=== PATIENT | male | born 1975 | race African-American/Black ===

== ENCOUNTER 2018-04-12 09:03 | Emergency (ER) | payer MEDICAID, OTHER ==
--- OUTSIDE RECORDS SUMMARY | 2018-04-12 09:07 | XMS REPORT ---
:1975 External Reference #:[id number] Author Organization [facility] Address [address] [place] [address] [place] [address] Phone [phone] Care Team Providers Name Role Phone Crispin Siddiqi MD Primary Care Physician Unavailable Payers Type Date Identification Numbers Payment Provider Subscriber Commercial Policy Number: [id number] Manfredanne Casillas PayID: [id number] [address] [place] [address] Medigap Part B Expires: 2017 Policy Number: [id number] Medicaid Aj Casillas Group Name: 1 1 [address] PayID: [id number] [place] [address] Workers Compensation Effective: Policy Number: Cresencio Casillas 2014 [id number] PayID: [id number] [address] [place] [address] Workers Compensation Onset: 2015 Policy Number: Lynette Casillas [id number] PayID: [id number] [address] [place] [address] Problems Date Description Provider Status Onset: 10/04/2011 Asthma without status asthmaticus Crispin Siddiqi M.D. Active Onset: 02/06/2013 Kyphoscoliosis and scoliosis Crispin Siddiqi M.D. Active Onset: 06/11/2014 Cervical disc disorder Crispin Siddiqi M.D. Active Onset: 06/19/2014 Neck pain Crispin Siddiqi M.D. Active Onset: 06/19/2014 C/O - a back symptom Crispin Siddiqi M.D. Active Onset: 10/01/2015 Pain in thoracic spine Crispin Siddiqi M.D. Active Onset: 07/19/2011 Cellulitis and abscess of face Crispin Siddiqi M.D. Inactive Inactive: 04/03/2015 Onset: 10/04/2011 Acute gingivitis Crispin Siddiqi M.D. Inactive Inactive: 04/03/2015 Onset: 06/11/2014 Chest pain Crispin Siddiqi M.D. Inactive Inactive: 04/03/2015 Family History Date Family Member(s) Problem(s) Comments Mother Alcoholism Mother Social History Type Date Description Comments Lives With Children 3, plus brothers and dog ETOH Use Consumes liquor once daily "a small bottle of Zora" - would be 375 ml Recreational Drug Use Marijuana Smoking Patient has never smoked Allergies, Adverse Reactions, Alerts Date Description Reaction Status Severity Comments 04/01/2010 Slo-bid vomiting and hives active Medications Medication Date Status Form Strength Qnty SIG Indications Ordering Provider Sofia Leos 04/10/ Active Capsules 100mg 30cap 1-2 by J20.9 Too EJr 2018 s mouth Pat, three M.D. times a day as needed Ventolin HFA 04/10/ Active Aerosol 108(90Base 8gm 2 puffs J45.909 Too EJr 2018 ) mcg/Act by mouth Pat, four M.D. times a day as needed Prednisone 04/10/ Active Tablets 20mg 10tab 1 by J45.909 Too EJr 2018 s mouth Pat, every day M.DJr Symbicort 05/02/ Active Aerosol 160-4.5mcg 30.6g 2 puff J45.909 [place] 2016 /Act m twice a Devang, day MJrDJr Montelukast 05/02/ Active Tablets 10mg 30tab once J45.909 [place] Sodium 2016 s daily Pachika, M.D. Ventolin HFA 05/02/ Active Aerosol 108(90Base 16gm 2 puffs J45.909 Zsofia 2015 ) mcg/Act by mouth Casa, four [employer]TAIN times a day as needed Cyclobenzaprine 04/03/ Active Tablets 10mg 30tab take 1 [place] HCL 2014 s tablet Pachikara, three M.D. times a day as needed (mva-rela poppy back pain) Ibuprofen 06/11/ Active Tablets 600mg 90tab three M50.10 Zoltan 2013 s times a D. Barnard, day as M.D.,[facility] needed Ventolin HFA 10/01/ Hx Aerosol 108(90Base 18gm 2 puffs Zoltan 2015 - ) mcg/Act by mouth Ramirez Her, 05/02/ four M.D.,FACP 2016 times a day as needed Diazepam 06/19/ Hx Tablets 5mg 2tabs 1-2 tab 1 722.91 [place] 2013 - hour Pachikara, 04/03/ before M.D. 2014 MRI no driving after taking diazepam Oxycodone-Acetami 06/11/ Hx Tablets 5-325mg 30tab 1 tab 722.91 Crispinjessica price 2014 - s every 12h Pachikara, 04/03/ as needed M.D. 2014 Ventolin HFA 02/07/ Hx Aerosol 108(90Base 1unit 2 puffs 4 493.90 Zulay 2013 - ) mcg/Act s times a Javy, 02/07/ day as M.D. 2013 needed Flovent HFA 02/07/ Hx Aerosol 110mcg/Act 1unit 2 puffs J45.909 Crispin 2014 - s twice Pachikara, 05/02/ daily M.D. 2016 Proair HFA 02/07/ Hx Aerosol 108(90Base 1unit 2 puffs 4 [place] 2013 - ) mcg/Act s times Pachikara, 05/02/ daily as M.D. 2016 needed Proair HFA 02/06/ Hx Aerosol 108(90Base 1unit 2 puffs 493.90 Crispin 2012 - ) mcg/Act s ih q6h Pachikara, 02/07/ prn M.D. 2014 Flovent HFA 02/06/ Hx Aerosol 110mcg/Act 1unit 2 puffs 493.90 Crispin 2013 - s twice Pachikara, 02/07/ daily M.D. 2014 Proair HFA 10/03/ Hx Aerosol 108(90Base 1unit 2 puffs 493.90 [place] 2011 - ) mcg/ac s ih q6h Pachikara, 02/06/ prn M.D. 2013 Amoxicillin/Potas 07/19/ Hx Tablets 875-125mg 20tab 1 po bid 682.0 [place] sium Clavulanate 2011 - s Pachikara, 10/03/ M.D. 2012 Lortab 5 04/01/ Hx Tablets 5-500mg 60tab 1tab 6h 724.1 Crispin 2009 - s prn Pachika, 10/03/ M.DJr 2011 Advair Diskus 04/01/ Hx Aerosol 250-50mcg/ 1unit 1 puff po 493.90 Crispin 2010 - Dose s bid Pachikara, 02/06/ M.DJr 2012 Albuterol Inhaler / Hx 1unit 2 puffs Crispin - s po qid Devang, 10/03/ prn M.DJr 2011 Allergy Relief / Hx Tablets 25mg daily Unknown - 2013 Ibuprofen / Hx Capsules 600mg prn Unknown - 2013 Immunizations CPT Code Status Date Vaccine Lot # [id number] Given 10/01/2015 Pneumonia Vaccine [id number] Given 07/20/2011 Tdap - Tetanus/Diptheria/Acellular Pertussis [id number] Vital Signs Date Vital Result Comment 04/10/2018 Height 66.25 inches 5'6.25" Weight 134.00 lb Heart Rate 93 /min BP Systolic Sitting 110 mmHg BP Diastolic Sitting 70 mmHg O2 % BldC Oximetry 96 % BMI (Body Mass Index) 21.5 kg/m2 05/02/2016 Weight 157.12 lb Heart Rate 78 /min BP Systolic Sitting 138 mmHg BP Diastolic Sitting 82 mmHg Body Temperature 98.3 F O2 % BldC Oximetry 97 % 10/01/2015 Height 66.25 inches 5'6.25" Weight 153.00 lb Heart Rate 102 /min BP Systolic Sitting 106 mmHg BP Diastolic Sitting 70 mmHg Body Temperature 98.2 F O2 % BldC Oximetry 98 % BMI (Body Mass Index) 24.5 kg/m2 04/03/2015 Height 66.25 inches 5'6.25" Weight 145.38 lb Heart Rate 100 /min BP Systolic Sitting 122 mmHg BP Diastolic Sitting 80 mmHg Body Temperature 97.9 F Pain Level 7 /10 OTC meds taken O2 % BldC Oximetry 99 % BMI (Body Mass Index) 23.3 kg/m2 06/19/2014 Height 66.25 inches 5'6.25" Weight 147.00 lb Heart Rate 113 /min BP Systolic Sitting 135 mmHg BP Diastolic Sitting 94 mmHg Pain Level 5 BMI (Body Mass Index) 23.5 kg/m2 06/11/2014 Height 66.25 inches 5'6.25" Weight 151.50 lb Heart Rate 78 /min BP Systolic Sitting 122 mmHg BP Diastolic Sitting 80 mmHg Pain Level 8 BMI (Body Mass Index) 24.3 kg/m2 03/18/2014 Weight 142.00 lb Heart Rate 80 /min BP Systolic Sitting 124 mmHg BP Diastolic Sitting 74 mmHg 02/07/2014 Weight 142.00 lb Heart Rate 96 /min BP Systolic Sitting 120 mmHg BP Diastolic Sitting 80 mmHg Body Temperature 97.7 F 02/06/2013 Height 66.75 inches 5'6.75" Weight 141.00 lb Heart Rate 80 /min BP Systolic Sitting 130 mmHg BP Diastolic Sitting 100 mmHg BMI (Body Mass Index) 22.2 kg/m2 10/04/2011 Height 66.5 inches 5'6.50" Weight 148.00 lb Heart Rate 68 /min BP Systolic Sitting 122 mmHg BP Diastolic Sitting 72 mmHg BMI (Body Mass Index) 23.5 kg/m2 07/19/2011 Height 66.5 inches 5'6.50" Weight 143.00 lb Heart Rate 78 /min BP Systolic Sitting 142 mmHg L BP Diastolic Sitting 92 mmHg L Body Temperature 98.6 F BMI (Body Mass Index) 22.7 kg/m2 04/01/2010 Height 66.5 inches 5'6.50" Weight 170.00 lb Heart Rate 80 /min BP Systolic Sitting 116 mmHg BP Diastolic Sitting 78 mmHg BMI (Body Mass Index) 27.0 kg/m2 Results Test Date Test Result H/L Range Note CBC Auto Diff 03/19/2015 White Blood Count 3.9 10^3/uL Low 4.8-10.8 Red Blood Count 4.34 10^6/uL 4.0-5.4 Hemoglobin 13.8 g/dL Low 14.0-18.0 Hematocrit 42 % 42-52 Mean Corpuscular Volume 97 fL High 80-94 Mean Corpuscular Hemoglobin 32 pg High 27-31 Mean Corpuscular HGB Conc 33 g/dL 31-36 Red Cell Distribution Width 14 % 10.5-15 Platelet Count 245 10^3/uL 150-450 Mean Platelet Volume 9 um3 7.4-10.4 Abs Neutrophils 1.4 10^3/uL Low 1.5-7.7 Abs Lymphocytes 1.8 10^3/uL 1.0-4.8 Abs Monocytes 0.3 10^3/uL 0-0.8 Abs Eosinophils 0.3 10^3/uL 0-0.6 Abs Basophils 0 10^3/uL 0-0.2 Abs Nucleated RBC 0.01 10^3/uL Granulocyte % 37.0 % Low 38-83 Lymphocyte % 46.1 % 25-47 Monocyte % 8.9 % 1-9 Eosinophil % 7.0 % High 0-6 Basophil % 1.0 % 0-2 Nucleated Red Blood Cells % 0.3 Comp Metabolic Panel 03/19/2015 Sodium 138 mmol/L 133-145 Chloride 106 mmol/L 101-111 Co2 Carbon Dioxide 27 mmol/L 22-32 Glucose 95 mg/dL 70-100 Blood Urea Nitrogen 15 mg/dL 6-24 Creatinine 0.98 mg/dL 0.67-1.17 BUN/Creatinine Ratio 15.3 8-20 Calcium 8.4 mg/dL Low 8.6-10.3 Total Protein 6.8 g/dL 6.4-8.9 Albumin 3.7 g/dL 3.2-5.2 Globulin 3.1 g/dL 2-4 Albumin/Globulin Ratio 1.2 1-3 Total Bilirubin 0.40 mg/dL 0.2-1.0 Alkaline Phosphatase 57 U/L 34-104 Alt 21 U/L 7-52 Egfr Non- 85.6 >60 Egfr 110.1 >60 1 Potassium 3.9 mmol/L 3.5-5.0 Anion Gap 5 mmol/L 2-11 Ast 21 U/L 13-39 Laboratory test finding 03/19/2015 Creatine Kinase(CK) 202 U/L 10-223 Urinalysis Profile 03/19/2015 Urine Color Yellow Urine Appearance Clear Urine Specific [place] 1.018 1.010-1.030 Urine pH 6.0 5-9 Urine Urobilinogen Negative Negative Urine Ketones Negative Negative Urine Protein Negative Negative Urine Leukocytes Negative Negative Urine Blood Negative Negative Urine Nitrite Negative Negative Urine Bilirubin Negative Negative Urine Glucose Negative Negative Drug Abuse 20 Urine 06/17/2014 Urine Amphetamine Negative ng/mL 2 Urine Barbiturates Negative ng/mL 3 Urine Benzodiazepines Negative ng/mL 4 Urine Cocaine Presumptive Posi <SEE NOTE> ng/mL 5 Urine Methadone Negative ng/mL 6 Urine Opiates Negative ng/mL 7 Urine Phencyclidine Negative ng/mL Cutoff: 25 Urine Tetrahydrocannabinol Presumptive Posi <SEE NOTE> ng/mL Cutoff: 20 8 Urine Oxycodone Presumptive Posi <SEE NOTE> ng/mL 9 Urine Amphetamine Negative ng/mL 10 Urine Barbiturates Negative ng/mL 11 Urine Benzodiazepines Negative ng/mL 12 Urine Cocaine Presumptive Posi <SEE NOTE> ng/mL 13 Urine Methadone Negative ng/mL 14 Urine Opiates Negative ng/mL 15 Urine Phencyclidine Negative ng/mL Cutoff: 25 Urine Tetrahydrocannabinol Presumptive Posi <SEE NOTE> ng/mL Cutoff: 20 16 Urine Oxycodone Presumptive Posi <SEE NOTE> ng/mL 17 Urine Cocaine 06/17/2014 Urine Cocaine Negative ng/mL Cutoff: 50 Confirmation Confirm (GC/MS) Ur Benzoylecgonine Confirm 162 ng/mL Cutoff: 50 Urine Cocaine Interpretation Positive. 18 THC Confirmation Urine 06/17/2014 Urine Carboxy THC Confirm >500.0 ng/mL 19 Urine THC Interpretation Positive. 20 Oxycodone,Urine Quantitation 06/17/2014 Oxycodone Negative ng/mL 21 Oxymorphone 510 ng/mL 22 Oxycodone Interpretation Positive. 23 HIV 1/2 AB Evaluation 02/11/2014 HIV 1 2 Antibody Nonreactive Nonreactive 24 Comp Metabolic Panel 02/11/2014 Sodium 139 mmol/L 133-145 Potassium 3.8 mmol/L 3.7-5.6 Chloride 105 mmol/L 101-111 Co2 Carbon Dioxide 29 mmol/L 22-32 Anion Gap 5 mmol/L 2-11 Glucose 73 mg/dL 70-100 Blood Urea Nitrogen 15 mg/dL 6-24 Creatinine 1.10 mg/dL 0.67-1.17 BUN/Creatinine Ratio 13.6 8-20 Calcium 9.3 mg/dL 8.6-10.3 Total Protein 8.3 g/dL 6.4-8.9 Albumin 4.5 g/dL 3.2-5.2 Globulin 3.8 g/dL 2-4 Albumin/Globulin Ratio 1.2 1-3 Total Bilirubin 0.60 mg/dL 0.2-1.0 Alkaline Phosphatase 54 U/L 34-104 Alt 18 U/L 7-52 Ast 18 U/L 13-39 Egfr Non- 75.3 >60 Egfr 96.9 >60 25 Syphilis Screen 02/11/2014 Syphilis IgG Nonreactive Nonreactive 26 RPR TNP Nonreactive RPR Titer TNP Pediatric/Maternal NO Lipid Profile (Trig/Chol/HDL) 02/11/2014 Triglycerides 164 mg/dL 27 Cholesterol 212 mg/dL 28 HDL Cholesterol 85.6 mg/dL 29 LDL Cholesterol 94 mg/dL 30 GC/Chlamydia Amplified Rna 02/07/2014 GC/Chlamydia Rna (SEE NOTE) 31 Ua Routine 02/07/2014 Ua Specific [place] 1.010 Ua PH 5 Ua Color dwain Ua Appera clear Ua WBC neg Ua Protein 30 Ua Glucose neg Ua Ketones trace Ua Bilirubin small Ua Urobilinogen norm Ua Nitrite neg Ua Occult Blood trace 1 Because ethnic data is not always readily available, this report includes an eGFR for both -Americans and non- Americans. The National Kidney Disease Education Program (NKDEP) does not endorse the use of the MDRD equation for patients that are not between the ages of 18 and 70, are , have extremes of body size, muscle mass, or nutritional status, or are non- or non-. According to the National Kidney Foundation, irrespective of diagnosis, the stage of the disease is based on the level of kidney function: Stage Description GFR(mL/min/1.73 m(2)) 1 Kidney damage with normal or decreased GFR 90 2 Kidney damage with mild decrease in GFR 60-89 3 Moderate decrease in GFR 30-59 4 Severe decrease in GFR 15-29 5 Kidney failure <15 (or dialysis) 2 REFERENCE VALUE Cutoff: 500 3 REFERENCE VALUE Cutoff: 200 4 REFERENCE VALUE Cutoff: 200 5 Presumptive Positive Drug confirmation to follow. Presumptive Positive means that the screening method is positive, but the test needs to be run by a confirmatory method before being finalized. REFERENCE VALUE Cutoff: 150 6 REFERENCE VALUE Cutoff: 150 7 REFERENCE VALUE Cutoff: 300 8 Presumptive Positive Drug confirmation to follow. Presumptive Positive means that the screening method is positive, but the test needs to be run by a confirmatory method before being finalized. ADDITIONAL INFORMATION This report is intended for use in clinical monitoring or management of patients. It is not intended for use in employment-related testing. 9 Presumptive Positive Drug confirmation to follow. Presumptive Positive means that the screening method is positive, but the test needs to be run by a confirmatory method before being finalized. REFERENCE VALUE Cutoff: 100 ADDITIONAL INFORMATION This report is intended for use in clinical monitoring or management of patients. It is not intended for use in employment-related testing. Test Performed by: [facility] - [address] [address] Reading Coach: Carl Jenkins M.D. 10 REFERENCE VALUE Cutoff: 500 11 REFERENCE VALUE Cutoff: 200 12 REFERENCE VALUE Cutoff: 200 13 Presumptive Positive Drug confirmation to follow. Presumptive Positive means that the screening method is positive, but the test needs to be run by a confirmatory method before being finalized. REFERENCE VALUE Cutoff: 150 14 REFERENCE VALUE Cutoff: 150 15 REFERENCE VALUE Cutoff: 300 16 Presumptive Positive Drug confirmation to follow. Presumptive Positive means that the screening method is positive, but the test needs to be run by a confirmatory method before being finalized. ADDITIONAL INFORMATION This report is intended for use in clinical monitoring or management of patients. It is not intended for use in employment-related testing. 17 Presumptive Positive Drug confirmation to follow. Presumptive Positive means that the screening method is positive, but the test needs to be run by a confirmatory method before being finalized. REFERENCE VALUE Cutoff: 100 ADDITIONAL INFORMATION This report is intended for use in clinical monitoring or management of patients. It is not intended for use in employment-related testing. Test Performed by: [facility] [place] [address] Reading Coach: Carl Jenkins M.D. 18 ADDITIONAL INFORMATION This report is intended for use in clinical monitoring and management of patients. It is not intended for use in employment-related testing. Test Performed by: [place] [address] Reading Coach: Carl Jenkins M.D. 19 REFERENCE VALUE Cutoff: 3.0 20 ADDITIONAL INFORMATION This report is intended for use in clinical monitoring and management of patients. It is not intended for use in employment-related testing. Test Performed by: [place] [address] Reading Coach: Carl Jenkins M.D. 21 REFERENCE VALUE Cutoff: 100 22 REFERENCE VALUE Cutoff: 100 23 ADDITIONAL INFORMATION This report is intended for use in clinical monitoring and management of patients. It is not intended for use in employment-related testing. Test Performed by: [place] [address] [place] [address] Reading Coach: Carl Jenkins M.D. 24 It is recognized that currently available assays for the detection of antibodies to HIV-1 and/or HIV-2 may not detect all infected individuals. HIV antibodies may be undetectable in some stages of the infection and in some clinical conditions. The performance of this assay has not been established for populations of infants or children. Assayed by Chemiluminescence Microparticle Immunoassay on the Siemens Advia Centaur CP. Values obtained with different methods or kits cannot be used interchangeably.The diagnostic specificity of the ADVIA Centaur 1/O/2 Enhanced assay in the low risk population was 99.90% (6052/6058) with a 95% confidence interval of 99.78 to 99.96%. 25 Because ethnic data is not always readily available, this report includes an eGFR for both -Americans and non- Americans. The National Kidney Disease Education Program (NKDEP) does not endorse the use of the MDRD equation for patients that are not between the ages of 18 and 70, are , have extremes of body size, muscle mass, or nutritional status, or are non- or non-. According to the National Kidney Foundation, irrespective of diagnosis, the stage of the disease is based on the level of kidney function: Stage Description GFR(mL/min/1.73 m(2)) 1 Kidney damage with normal or decreased GFR 90 2 Kidney damage with mild decrease in GFR 60-89 3 Moderate decrease in GFR 30-59 4 Severe decrease in GFR 15-29 5 Kidney failure <15 (or dialysis) 26 Warning: A positive result is not useful for establishing a diagnosis of syphilis. In most situations, such a result may reflect a prior treated infection; a negative result can exclude a diagnosis of syphilis except for incubating or early primary disease. 27 Desirable <150 Borderline high 150-199 High 200-499 Very High >500 28 Desirable <200 Borderline high 200-239 High >239 29 Low <40 Desirable: 40-60 High: >60 30 Desirable <100 Near Optimal 100-129 Borderline high 130-159 High 160-189 Very High >189 31 RUN DATE: 02/11/14 [facility] LAB LIVE PAGE 1 RUN TIME: [address] [place] [address] Specimen Inquiry Name: AJ CASILLAS Sri : [address]: Zulay Palafox MD Acct: [id number] Unit: [id number] AGE: 38 Location: [facility] Re02/07/14 SEX: M Status: REG REF SPEC: [id number] JUSTICE: 02/07/[address]: Zulay Palafox MD REQ: [id number] RECD: 02/07/14 STATUS: COMP _ SOURCE: URINE SPDESC: ORDERED: AELX/Reena RNA QUERIES: Medent Number [id number] Procedure Result Verified Site Chlamydia Trachomatis RNA Final 02/11/14- 1517 ML NEGATIVE for Chlamydia trachomatis rRNA GC (N. gonorrhoeae) RNA Final 02/11/14- 1507 ML NEGATIVE for Neisseria gonorrhoeae rRNA A negative result does not preclude the presence of a C. trachomatis or N. gonorrhoeae infection because results are dependent on adequate specimen collection, absence of inhibitors, and sufficient rRNA to be detected. Test results may be affected by improper specimen collection, improper storage, technical error, or specimen mixup. Limitations of the Procedure: The Aptima Combo 2 Assay is not intended for the evaluation of suspected sexual abuse or for other medico-legal indications. For those patients for whom a false positive result may have adverse psychosocial impact, the [facility] recommends retesting by a method using an alternate technology. Therapeutic failure or success cannot be determined with the Aptima Combo 2 Assay since nucleic acid may persist following appropriate antimicrobial therapy. Results from the Aptima Combo 2 Assay should be interpreted in conjunction with other laboratory and clinical data available to the clinican. CONTINUED ON NEXT PAGE * ML=Testing performed at Main Lab DEPARTMENT OF PATHOLOGY, [facility] [place] [address] Aman Akins M.D. Director [facility] # [id number] RUN DATE: 02/11/14 [facility] LAB LIVE PAGE 2 RUN TIME: 857 [facility] [place], [place] [address] Specimen Inquiry Patient: VINNYAJ Sri [id number] (Continued) Specimen: [id number] Collected: 02/07/14 Received: 02/07/14 (Continued) Procedure Result Verified Site GC (N. gonorrhoeae) RNA Final (continued) 02/11/14- 0648 Performance characteristics for detecting C. trachomatis and N. gonorrhoeae are derived from high prevalence populations. Positive results in low prevalence populations should be interpreted carefully with the understanding that the likelihood of a false positive may be higher than a true positive. END OF REPORT * ML=Testing performed at Main Lab DEPARTMENT OF PATHOLOGY, [address] [place] [address] Aman Akins M.D. Director [facility] # [id number] Procedures Date CPT Code Description Status 10/10/2017 91895 Repair Immediate Wound < 2.6CM Completed Face/Ear/Eyelid/Nose/Lip/Muc Mem 10/10/2017 76997 Excise Benign Lesion 1.1-2CM Completed Face/Ear/Eyelid/Nose/Lip/Mucous Memb 07/22/2010 44424 FX Metatarsal Care Completed Encounters Type Date Location Provider CPT E/M Dx Office Visit 10/25/2017 [facility] [place] [address] Z48.02 4:30p Office Visit 09/28/2017 [facility] [place] [address] L72.0 11:10a Office Visit 05/02/2016 [facility] Internal Medicine Crispin Siddiqi [address] M54.6 1:00p - Maxine Merrill M.D. M41.85 J45.909 Z13.1 Z13.220 Office Visit 10/01/2015 1:00p [facility] Internal Crispin Siddiqi M.D. 93540 M54.6 Medicine - [place] J45.909 Z23 Office Visit 04/03/2015 1:00p [facility] Internal Medicine Zoltan Her, [address] T14.8 - Tbdustin Merrill M.D.,FACP R42 Office Visit 06/19/2014 11:00a [facility] Internal Crispin Siddiqi 61110 722.91 Victorino Keenan M.D. 724.8 Office Visit 06/11/2014 1:00p [facility] Internal Crispin Siddiqi 11888 722.91 Victorino Keenan M.D. 786.59 723.1 Office Visit 03/18/2014 4:00p [facility] Internal Medicine Too Stewart [address] 782.0 - Ree Ellis Office Visit 02/07/2014 1:00p [facility] Internal Medicine Zulay Palafox [address]03[address] 792.1 - Ree Ellis 493.90 737.39 V77.91 V65.45 305.02 Office Visit 02/06/2013 8:20a [facility] Internal Crispin Siddiqi 23310 737.39 Victorino Keenan M.D. 493.90 Office Visit 10/04/2011 10:20a [facility] Internal [facility], [address] 523.01 Victorino Keenan M.D. 493.90 Office Visit 07/19/2011 10:20a [facility] Internal [facility], [address] 682.0 Victorino Keenan M.D. Office Visit 04/01/2010 4:20p DO Not Use [facility] AT [facility], [address] 493.90 Kathy Ellis V70.0 737.34 724.1 Plan of Care 04/10/2018 - Too Stewart M.D.J20.9 Acute bronchitis, unspecifiedNew Medication:Tessalon Perles 100 mgJ45.909 Unspecified asthma, uncomplicatedNew Medication:Ventolin HFA 108(90 Base) mcg/ActPrednisone 20 mg
[2018-04-12] MEDS ORDERED: Ketorolac INJ* 30 MG/ML 1 ML VIAL IV PUSH ONE (09:19)
[2018-04-12] MEDS ORDERED: Albuterol/Ipratropium NEB.SOL* Albuterol 2.5 MG/Ipratropium 0.5 MG 3 ML INH ONE (09:19)
[2018-04-12] MEDS ORDERED: Morphine INJ** 4 MG/ML 1 ML CARPUJECT IV ONE (09:19)
[2018-04-12] MEDS ORDERED: guaiFENesin/CODIEN 100MG-10MG* 5 ML UDC PO ONE (09:19)
[2018-04-12 09:37] LABS: Hematocrit 42 % (42-52); Hemoglobin 14.3 g/dl (14.0-18.0); Mean Corpuscular HGB Conc 34 g/dl (31-36); Mean Corpuscular Hemoglobin 33 pg (27-31); Mean Corpuscular Volume 96 fL (80-94); Platelet Count 266 10^3/ul (150-450); Red Blood Count 4.38 10^6/ul (4.00-5.40); Red Cell Distribution Width 14 % (10.5-15); White Blood Count 16.4 10^3/ul (3.5-10.8)
[2018-04-12 09:55] LABS: EGFR Non-African American 89.1 (>60)
[2018-04-12 10:12] LABS: INR 1.01 (0.77-1.02)
--- NOTE | 2018-04-12 10:31 | RAD ---
HISTORY: chest pain COMPARISONS: CT of the chest dated March 19, 2015 VIEWS: 4: Frontal dual-energy and lateral views of the chest. FINDINGS: CARDIOMEDIASTINAL SILHOUETTE: The cardiomediastinal silhouette is normal. TORI: The tori are normal. PLEURA: The costophrenic angles are sharp. No pleural abnormalities are noted. LUNG PARENCHYMA: There is a 4.7 cm rounded density that appears localized to the right upper lobe. This is not clearly seen on the previous CT examination. ABDOMEN: The upper abdomen is clear. There is no subphrenic gas. BONES AND SOFT TISSUES: No bone or soft tissue abnormalities are noted. OTHER: None. IMPRESSION: 4.7 CM DENSITY OF THE RIGHT UPPER LUNG. THE DIFFERENTIAL INCLUDES PULMONARY PARENCHYMAL NEOPLASM. RECOMMEND CONSIDERATION OF FURTHER EVALUATION WITH CONTRAST ENHANCED CT OF THE CHEST..
[2018-04-12 10:37] LABS: ABS Basophils 0.1 10^3/ul (0-0.2); ABS Eosinophils 0 10^3/ul (0-0.6); ABS Lymphocytes 1.3 10^3/ul (1.0-4.8); ABS Monocytes 2.1 10^3/ul (0-0.8); ABS Nucleated RBC 0 10^3/ul; Eosinophil % 0 % (0-6); Lymphocyte % 7.8 % (25-47); Nucleated Red Blood Cells % 0.1
[2018-04-12] MEDS ORDERED: Iohexol 300* (CONTRAST) 10 ML SDV IV ONE (11:06)
--- NOTE | 2018-04-12 11:35 | RAD ---
HISTORY: nodule COMPARISONS: Chest x-ray dated April 12, 2018, CT dated March 19, 2015 TECHNIQUE: Multiple contiguous axial CT scans of the chest were obtained with intravenous contrast. Coronal and sagittal multiplanar reformations are also submitted for review. FINDINGS: NECK AND THYROID: The lower neck and thyroid are unremarkable. CHEST WALL: There is no lower cervical, axillary, or supraclavicular lymphadenopathy by size criteria. HEART AND PERICARDIUM: The heart is unremarkable. AORTA AND PULMONARY VASCULATURE: The aorta and pulmonary vasculature are normal. MEDIASTINUM: There is no mediastinal lymphadenopathy by size criteria. TORI: There is no hilar lymphadenopathy by size criteria. AIRWAY AND ESOPHAGUS: The airway is unremarkable, without endobronchial filling defect. The esophagus is grossly normal. LUNG PARENCHYMA: There is multifocal consolidation, predominantly within the right lung but also involving the lingula, including the area of nodularity noted on chest x-ray PLEURA: No pleural abnormalities are noted. UPPER ABDOMEN: The upper abdomen is unremarkable. BONES AND SOFT TISSUES: No bone or soft tissue abnormalities are noted. OTHER: None. IMPRESSION: 1. CONSOLIDATION, MOST CONSISTENT WITH PNEUMONIA, THOUGH NONINFECTIOUS INFLAMMATORY PROCESSES, INCLUDING CRYPTOGENIC ORGANIZED PNEUMONIA, ARE ALSO WITHIN THE DIFFERENTIAL. 2. RECOMMEND FOLLOW-UP UNTIL RESOLUTION TO EXCLUDE UNDERLYING PULMONARY PARENCHYMAL PATHOLOGY.
[2018-04-12] MEDS ORDERED: Azithromycin IV* 500 MG ADVAN VIAL/BAG IVPB ONE (12:11)
[2018-04-12] MEDS ORDERED: NS 0.9% 1000 ML* 1,000 ML IV ONE (12:12)
[2018-04-12] MEDS ORDERED: cefTRIAXone(*) 1 GM in NS 0.9% 50 ML* 50 ML IVPB ONE (12:12)
[2018-04-12 14:49] VITALS: BP 131/91
--- NOTE | 2018-04-14 06:34 | ED ---
HPI Chest Pain - HPI Summary HPI Summary: Patient is an otherwise healthy 43-year-old male with a remote history of asthma presenting to the ED with shortness of breath and chest pain 3 days which has been worsening. Denies any fevers, however is endorsing sweats and chills. She states she has never had a pneumonia or bronchitis. He has needed his albuterol inhaler more frequently over the past several days. Denies any history of smoking or recent travel. Denies any cardiac history. Family history includes grandparents with cardiac history. 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 He was seen by his PCP 2 days ago, however was not given antibiotics. He was placed on steroids and Tessalon pearls. - History of Current Complaint Chief Complaint: EDChestPainROMI Time Seen by Provider: 04/12/18 09:10 Hx Obtained From: Patient Onset/Duration: Started Hours Ago Timing: Constant Initial Severity: Moderate Current Severity: Moderate Pain Intensity: 3 Pain Scale Used: 0-10 Numeric Chest Pain Location: Mid Sternal Chest Pain Radiates: No Character: Cough, Non-Productive, Dyspnea at Rest, Exertion Aggravating Factor(s): Nothing Alleviating Factor(s): Rest Associated Signs and Symptoms: Positive: Negative - Risk Factors Pulmonary Embolism Risk Factors: Negative TAD Risk Factors: Negative - Allergy/Home Medications Allergies/Adverse Reactions: Allergies Allergy/AdvReac Type Severity Reaction Status Date / Time cat dander Allergy Eyes Verified 04/12/18 09:08 Itchy/Swollen/Red/Watery slowbid Allergy Intermediate Hives Uncoded 03/20/15 10:54 Home Medications: Home Medications Albuterol Sulfate [Ventolin Hfa] 1 - 2 puff INH Q6HR PRN 04/12/18 [History Confirmed 04/12/18] Benzonatate CAP* [Tessalon 100 MG CAP*] 1 - 2 cap PO TID PRN 04/12/18 [History Confirmed 04/12/18] predniSONE TAB* [Deltasone 20 MG TAB*] 20 mg PO DAILY 04/12/18 [History Confirmed 04/12/18] PMH/Surg Hx/FS Hx/Imm Hx Previously Healthy: Yes Endocrine/Hematology History: Denies: Hx Diabetes Cardiovascular History: Denies: Hx Congestive Heart Failure, Hx Hypertension, Hx Pacemaker/ICD Respiratory History: Reports: Hx Asthma History: Denies: Hx Renal Disease Sensory History: Denies: Hx Contacts or Glasses, Hx Hearing Aid Opthamlomology History: Denies: Hx Contacts or Glasses Psychiatric History: Denies: Hx Panic Disorder - Surgical History Surgery Procedure, Year, and Place: Rt ANKLE - W/ 2 SCREWS - Immunization History Date of Tetanus Vaccine: PT STATES UNSURE Date of Influenza Vaccine: NONE Hx Pertussis Vaccination: No Immunizations Up to Date: Yes Infectious Disease History: No Infectious Disease History: Denies: Traveled Outside the [place] in Last 30 Days - Family History Known Family History: Positive: Cardiac Disease, Hypertension, Diabetes - Social History Occupation: Employed Full-time Lives: With Family Alcohol Use: Weekly Alcohol Amount: every other day sometimes Hx Substance Use: Yes Substance Use Type: Reports: Marijuana Substance Use Comment - Amount & Last Used: ealier today Hx Tobacco Use: No Smoking Status (MU): Never Smoked Tobacco Review of Systems Constitutional: Negative Negative: Fever, Chills, Fatigue, Skin Diaphoresis Positive: Chest Pain. Negative: Palpitations Positive: Cough Genitourinary: Negative Positive: no symptoms reported, see HPI Negative: Arthralgia, Myalgia Skin: Negative Neurological: Negative All Other Systems Reviewed And Are Negative: Yes Physical Exam Triage Information Reviewed: Yes Vital Signs On Initial Exam: Initial Vitals Temp Pulse Resp BP Pulse Ox 100 F 97 20 123/88 97 04/12/18 09:03 04/12/18 09:03 04/12/18 09:03 04/12/18 09:03 04/12/18 09:03 Vital Signs Reviewed: Yes Appearance: Positive: Well-Appearing, Well-Nourished Skin: Positive: Warm, Skin Color Reflects Adequate Perfusion Head/Face: Positive: Normal Head/Face Inspection Eyes: Positive: EOMI, ALISHA, Conjunctiva Clear Neck: Positive: Supple, No Lymphadenopathy Respiratory/Lung Sounds: Positive: Wheezes - bilaterally Cardiovascular: Positive: RRR, Pulses are Symmetrical in both Upper and Lower Extremities Musculoskeletal: Positive: Strength/ROM Intact Neurological: Positive: Alert, Oriented to Person Place, Time, Speech Normal Psychiatric: Positive: Affect/Mood Appropriate Diagnostics - Vital Signs Vital Signs Temp Pulse Resp BP Pulse Ox 04/12/18 14:48 99.2 F 89 16 131/91 100 04/12/18 13:16 101 21 149/99 98 04/12/18 13:12 83 14 99 04/12/18 10:45 100 17 158/94 100 04/12/18 10:15 97 20 160/92 100 04/12/18 09:29 89 24 99 04/12/18 09:03 100 F 97 20 123/88 97 - Laboratory Lab Results: Lab Results 04/12/18 04/12/18 04/12/18 Range/Units 09:22 09:22 09:22 WBC 16.4 H (3.5-10.8) 10^3/ul RBC 4.38 (4.00-5.40) 10^6/ul Hgb 14.3 (14.0-18.0) g/dl Hct 42 (42-52) % MCV 96 H (80-94) fL MCH 33 H (27-31) pg MCHC 34 (31-36) g/dl RDW 14 (10.5-15) % Plt Count 266 (150-450) 10^3/ul MPV 8.0 (7.4-10.4) um3 Neut % (Auto) 79.1 (38-83) % Lymph % (Auto) 7.8 L (25-47) % [place] % (Auto) 12.7 H (0-7) % Eos % (Auto) 0 (0-6) % Baso % (Auto) 0.4 (0-2) % Absolute Neuts (auto) 13.0 H (1.5-7.7) 10^3/ul Absolute Lymphs (auto) 1.3 (1.0-4.8) 10^3/ul Absolute Monos (auto) 2.1 H (0-0.8) 10^3/ul Absolute Eos (auto) 0 (0-0.6) 10^3/ul Absolute Basos (auto) 0.1 (0-0.2) 10^3/ul Absolute Nucleated RBC 0 10^3/ul Nucleated RBC % 0.1 INR (Anticoag Therapy) 1.01 (0.77-1.02) APTT 29.9 (26.0-36.3) seconds Sodium 135 (135-145) mmol/L Potassium 3.5 (3.5-5.0) mmol/L Chloride 102 (101-111) mmol/L Carbon Dioxide 28 (22-32) mmol/L Anion Gap 5 (2-11) mmol/L BUN 13 (6-24) mg/dL Creatinine 0.93 (0.67-1.17) mg/dL Est GFR ( Amer) 107.8 (>60) Est GFR (Non-Af Amer) 89.1 (>60) BUN/Creatinine Ratio 14.0 (8-20) Glucose 114 H (70-100) mg/dL Lactic Acid (0.5-2.0) mmol/L Calcium 9.4 (8.6-10.3) mg/dL Total Bilirubin 0.70 (0.2-1.0) mg/dL AST 13 (13-39) U/L ALT 14 (7-52) U/L Alkaline Phosphatase 54 (34-104) U/L Total Creatine Kinase 174 (10-223) U/L Troponin I 0.01 (<0.04) ng/mL Total Protein 7.4 (6.4-8.9) g/dL Albumin 3.7 (3.2-5.2) g/dL Globulin 3.7 (2-4) g/dL Albumin/Globulin Ratio 1.0 (1-3) 04/12/18 Range/Units 09:22 WBC (3.5-10.8) 10^3/ul RBC (4.00-5.40) 10^6/ul Hgb (14.0-18.0) g/dl Hct (42-52) % MCV (80-94) fL MCH (27-31) pg MCHC (31-36) g/dl RDW (10.5-15) % Plt Count (150-450) 10^3/ul MPV (7.4-10.4) um3 Neut % (Auto) (38-83) % Lymph % (Auto) (25-47) % [place] % (Auto) (0-7) % Eos % (Auto) (0-6) % Baso % (Auto) (0-2) % Absolute Neuts (auto) (1.5-7.7) 10^3/ul Absolute Lymphs (auto) (1.0-4.8) 10^3/ul Absolute Monos (auto) (0-0.8) 10^3/ul Absolute Eos (auto) (0-0.6) 10^3/ul Absolute Basos (auto) (0-0.2) 10^3/ul Absolute Nucleated RBC 10^3/ul Nucleated RBC % INR (Anticoag Therapy) (0.77-1.02) APTT (26.0-36.3) seconds Sodium (135-145) mmol/L Potassium (3.5-5.0) mmol/L Chloride (101-111) mmol/L Carbon Dioxide (22-32) mmol/L Anion Gap (2-11) mmol/L BUN (6-24) mg/dL Creatinine (0.67-1.17) mg/dL Est GFR ( Amer) (>60) Est GFR (Non-Af Amer) (>60) BUN/Creatinine Ratio (8-20) Glucose (70-100) mg/dL Lactic Acid 1.0 (0.5-2.0) mmol/L Calcium (8.6-10.3) mg/dL Total Bilirubin (0.2-1.0) mg/dL AST (13-39) U/L ALT (7-52) U/L Alkaline Phosphatase (34-104) U/L Total Creatine Kinase (10-223) U/L Troponin I (<0.04) ng/mL Total Protein (6.4-8.9) g/dL Albumin (3.2-5.2) g/dL Globulin (2-4) g/dL Albumin/Globulin Ratio (1-3) Result Diagrams: 04/12/18 09:22 04/12/18 09:22 Lab Statement: Any lab studies that have been ordered have been reviewed, and results considered in the medical decision making process. Chest Pain Course/Dx - Course Course Of Treatment: During the course treatment, the patient is evaluated for chest pain with cough as well as some shortness of breath with cough. He denies any fevers, however is endorsing sweats and chills. Labs obtained which showed an elevated white count of 16.4, otherwise labs are WNL. He is afebrile on arrival vital signs are stable. Chest x-ray shows patchy infiltrate. Follow up CTA shows CONSOLIDATION, MOST CONSISTENT WITH PNEUMONIA, NONINFECTIOUS INFLAMMATORY PROCESSES, INCLUDING CRYPTOGENIC ORGANIZING PNEUMONIA , ARE ALSO WITHIN THE DIFFERENTIAL. RECOMMEND FOLLOW-UP UNTIL RESOLUTION TO EXCLUDE UNDERLYING PULMONARY PARENCHYMAL pathology. Patient was given Levaquin IV and fluids in the ED with symptomatic relief. He will be sent home on Levaquin and is to follow-up in 2-3 days for repeat chest x-ray for resolution. - Diagnoses Provider Diagnoses: Pneumonia Discharge - Sign-Out/Discharge Documenting (check all that apply): Patient Departure - Discharge Plan Condition: Stable Disposition: HOME Prescriptions: Levofloxacin TAB* [Levaquin TAB*] 500 mg PO DAILY #5 tab Patient Education Materials: Pneumonia (ED) Referrals: Crispin Siddiqi MD [Primary Care Provider] - Additional Instructions: Levaquin once daily 5 days Please follow-up in 3-4 days for a repeat chest x-ray [phone] [facility] If you're unable to get into see your PCP for a repeat chest x-ray, follow-up with [facility] Tylenol and ibuprofen may be used intermittently for discomfort Continue with your at home inhaler and nebulizer as needed Continue with your steroid as prescribed - Billing Disposition and Condition Condition: STABLE Disposition: Home
== END 2018-04-12 14:48 | disposition home or self-care (01) ==
LOC: ED 09:03
DX: J18.9 Pneumonia, unspecified organism (principal); R07.9 Chest pain, unspecified; R05 Cough
CPT/HCPCS: 36415; 71046; 71260; 80053; 82550; 83605; 84484; 85025; 85610; 85730; 93005; 96365; 96366; 96375; 99283; A9270-GY; J0456; J0696; J1885; J2270; Q9967

== ENCOUNTER 2018-10-15 10:03 | Emergency (ER) | payer SELFPAY ==
--- NOTE | 2018-10-15 10:31 | ED ---
Throat Pain/Nasal Congestion - HPI Summary HPI Summary: Patient is a 43 y/o male brought in by EMS who presents to the ED c/o jaw pain. 8 days ago he began to have intermittent right-sided jaw pain and swelling. This morning at 3:00 the pain worsened and is now rated an 8/10 in severity. The pain is described as aching in nature, and is located at his right TMJ. The pain is made worse with chewing. He denies any fever. 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 He denies any smoking, but uses marijuana. Patient had some alcohol last night. - History of Current Complaint Chief Complaint: EDGeneral Time Seen by Provider: 10/15/18 10:18 Hx Obtained From: Patient, EMS Onset/Duration: Gradual Onset, Lasting Days - 8, Worse Since Severity: Severe - 8/10 Associated Signs And Symptoms: Positive: Negative Cough: None Related History: Other (Noted In Comments) - No smoking - Allergies/Home Medications Allergies/Adverse Reactions: Allergies Allergy/AdvReac Type Severity Reaction Status Date / Time cat dander Allergy Eyes Verified 10/15/18 08:46 Itchy/Swollen/Red/Watery slowbid Allergy Intermediate Hives Uncoded 10/15/18 08:46 PMH/Surg Hx/FS Hx/Imm Hx Endocrine/Hematology History: Denies: Hx Diabetes Cardiovascular History: Denies: Hx Congestive Heart Failure, Hx Hypertension, Hx Pacemaker/ICD Respiratory History: Reports: Hx Asthma History: Denies: Hx Renal Disease Musculoskeletal History: Reports: Hx of Fracture(s) - right ankle Sensory History: Denies: Hx Contacts or Glasses, Hx Hearing Aid Opthamlomology History: Denies: Hx Contacts or Glasses Psychiatric History: Denies: Hx Panic Disorder - Surgical History Surgery Procedure, Year, and Place: Rt ANKLE - W/ 2 SCREWS - Immunization History Date of Tetanus Vaccine: PT STATES UNSURE Date of Influenza Vaccine: NONE Infectious Disease History: No Infectious Disease History: Denies: Traveled Outside the [place] in Last 30 Days - Family History Known Family History: Positive: Cardiac Disease, Hypertension, Diabetes - Social History Alcohol Use: Weekly Alcohol Amount: every other day sometimes Hx Substance Use: Yes Substance Use Type: Reports: Marijuana Substance Use Comment - Amount & Last Used: ealier today Hx Tobacco Use: No Smoking Status (MU): Never Smoked Tobacco Review of Systems Negative: Fever Positive: Myalgia - right jaw pain, Edema All Other Systems Reviewed And Are Negative: Yes Physical Exam - Summary Physical Exam Summary: VITAL SIGNS: Reviewed. GENERAL: Patient is a well-developed and nourished MALE who is crying due to pain in the stretcher. Patient is not in any acute respiratory distress. HEAD AND FACE: No signs of trauma. No ecchymosis, hematomas or skull depressions. No sinus tenderness. Edema and tenderness to the right TMJ extending to the ear. No trismus. EYES: PERRLA, EOMI x 2, No injected conjunctiva, no nystagmus. EARS: Hearing grossly intact. Ear canals and tympanic membranes are within normal limits. MOUTH: Poor dentation. No swelling of the tongue or lips. NECK: Supple, trachea is midline, no JVD, no carotid bruit, no c-spine tenderness, neck with full ROM. No lymphadenopathy. CHEST: Symmetric, no tenderness at palpation LUNGS: Clear to auscultation bilaterally. No wheezing or crackles. CVS: Regular rate and rhythm, S1 and S2 present, no murmurs or gallops appreciated. ABDOMEN: Soft, non-tender. No signs of distention. No rebound no guarding, and no masses palpated. Bowel sounds are normal. EXTREMITIES: FROM in all major joints, no edema, no cyanosis or clubbing. NEURO: Alert and oriented x 3. No acute neurological deficits. Speech is normal and follows commands. SKIN: Dry and warm Triage Information Reviewed: Yes Vital Signs On Initial Exam: Initial Vitals Temp Pulse Resp BP Pulse Ox 98.1 F 83 22 163/114 98 10/15/18 10:10 10/15/18 10:10 10/15/18 10:10 10/15/18 10:10 10/15/18 10:10 Vital Signs Reviewed: Yes Diagnostics - Vital Signs Vital Signs Temp Pulse Resp BP Pulse Ox 10/15/18 10:10 98.1 F 83 15 163/114 98 - Laboratory Result Diagrams: 10/15/18 11:33 10/15/18 11:33 Lab Statement: Any lab studies that have been ordered have been reviewed, and results considered in the medical decision making process. - CT Maxillofacial CT CT Interpretation Completed By: Radiologist Summary of CT Findings: THERE IS A NONDISPLACED FRACTURE OF THE RIGHT MANDIBLE. ED physician reviewed radiology report. Re-Evaluation - Re-Evaluation First Eval Re-Evaluation Time: 12:51 Change: Improved Comment: Pt feels better after medication. He admits that last week he was heavily drinking with his friends and blacked out. He does not remember if he fell or had any trauma to his jaw. EENT Course/Dx - Course Assessment/Plan: This patient is a 43-year-old male who presents to the emergency department with chief complaining of right-sided jaw pain for the last couple days. The patient went to the urgent care the patient was sent to the emergency department for further workup and management. The patient is in severe pain however he does have any trismus or airway compromise. Patient was given IV fluids, Toradol, and morphine for the pain. Maxillofacial CT impression: There is a nondisplaced fracture of the right mandible. At this point the patient is feeling better, discussed the findings and test results with the patient and the need to follow-up with maxillofacial surgeon. The patient understands and agrees. Patient will be given a prescription for Percocet and he will also will take [id number] ibuprofen. He is hemodynamically stable alert and oriented 3. - Diagnoses Provider Diagnoses: Mandibular fracture Discharge - Sign-Out/Discharge Documenting (check all that apply): Patient Departure - Discharge Patient Received Moderate/Deep Sedation with Procedure: No - Discharge Plan Condition: Stable Disposition: HOME Prescriptions: oxyCODONE/Acetamin 5/325 MG* [Percocet 5/325 TAB*] 1 tab PO Q6H PRN #12 tab MDD 4 PRN Reason: Pain oxyCODONE/Acetamin 5/325 MG* [Percocet 5/325 TAB*] 1 tab PO Q6H PRN #12 tab MDD 4 PRN Reason: Pain Patient Education Materials: Jaw Fracture in Adults (ED) Forms: *Work Release Referrals: Crispin Siddiqi MD [Primary Care Provider] - 3 Days Benjamin Moore MD [Doctor of Dental Medicine] - 5 Days () Additional Instructions: RETURN TO THE ED FOR ANY WORSENING OR NEW SYMPTOMS. - Billing Disposition and Condition Condition: STABLE Disposition: Home - Attestation Statements Document Initiated by Scribe: Yes Documenting Scribe: Lindsay Best Provider For Whom Scribe is Documenting (Include Credential): Too Fitzgerald MD Scribe Attestation: I, Lindsay Best, scribed for Too Fitzgerald MD on 10/17/18 at 2120. Scribe Documentation Reviewed: Yes Provider Attestation: The documentation as recorded by the astridibLindsay trivedi accurately reflects the service I personally performed and the decisions made by me, Too Fitzgerald MD Status of Scribe Document: Viewed
[2018-10-15] MEDS ORDERED: Morphine 4 MG/ML VIAL (1 ml) 4 MG/ML VIAL IV ONE (10:35)
[2018-10-15] MEDS ORDERED: NS 0.9% 1000 ML** 1,000 ML IV ONE (10:35)
[2018-10-15] MEDS ORDERED: Ketorolac INJ* 30 MG/ML 1 ML VIAL IV PUSH ONE (10:35)
[2018-10-15 11:41] LABS: Urine Appearance Clear; Urine Bacteria Absent (Absent); Urine Bilirubin Negative (Negative); Urine Blood 1+ (Negative); Urine Color Yellow; Urine Glucose Negative (Negative); Urine Ketones Negative (Negative); Urine Nitrite Negative (Negative); Urine Protein Negative (Negative); Urine Red Blood Cell 1+(3-5/hpf) (Absent); Urine Specific Gravity 1.019 (1.010-1.030); Urine Squamous Epithelial Cell Present (Absent); Urine Urobilinogen Negative (Negative); Urine White Blood Cell Absent (Absent)
[2018-10-15 11:51] LABS: ABS Basophils 0 10^3/ul (0-0.2); ABS Eosinophils 0.1 10^3/ul (0-0.6); ABS Monocytes 0.5 10^3/ul (0-0.8); ABS Neutrophils 3.2 10^3/ul (1.5-7.7); ABS Nucleated RBC 0 10^3/ul; Eosinophil % 1.4 %; Hematocrit 42 % (36-46); Hemoglobin 14.2 g/dL (14.0-18.0); Lymphocyte % 21.3 %; Mean Corpuscular HGB Conc 34 g/dL (31-36); Mean Corpuscular Hemoglobin 33 pg (27-31); Mean Corpuscular Volume 97 fL (80-94); Nucleated Red Blood Cells % 0.1; Platelet Count 286 10^3/uL (150-450); Red Blood Count 4.31 10^6 /uL (4.18-5.48); Red Cell Distribution Width 14 % (10.5-15); White Blood Count 4.8 10^3/uL (3.5-10.8)
[2018-10-15 12:01] LABS: ALT 14 U/L (7-52); AST 18 U/L (13-39); Albumin 3.8 g/dL (3.2-5.2); Albumin/Globulin Ratio 1.1 (1-3); Alkaline Phosphatase 56 U/L (34-104); Anion Gap 5 mmol/L (2-11); BUN/Creatinine Ratio 12.5 (8-20); Blood Urea Nitrogen 13 mg/dL (6-24); C Reactive Protein < 1.00 mg/L (<8.01); CO2 Carbon Dioxide 28 mmol/L (22-32); Calcium 8.7 mg/dL (8.6-10.3); Chloride 107 mmol/L (101-111); EGFR African American 94.8 (>60); EGFR Non-African American 78.3 (>60); Globulin 3.4 g/dL (2-4); Glucose 94 mg/dL (70-100); Potassium 3.9 mmol/L (3.5-5.0); Sodium 140 mmol/L (135-145); Total Protein 7.2 g/dL (6.4-8.9)
[2018-10-15] MEDS ORDERED: Ondansetron INJ* 2 MG/ML VIAL IV ONE (12:11)
[2018-10-15] MEDS ORDERED: Iohexol 300* (CONTRAST) 10 ML SDV IV ONE (12:11)
[2018-10-15 13:29] VITALS: BP 155/121
== END 2018-10-15 13:28 | disposition home or self-care (01) ==
LOC: ED 10:03
DX: S02.609A Fracture of mandible, unspecified, initial encounter for closed fracture (principal); X58.XXXA Exposure to other specified factors, initial encounter; Z88.8 Allergy status to other drugs, medicaments and biological substances
CPT/HCPCS: 36415; 70487; 80053; 81003; 81015; 83605; 85025; 86140; 96361; 96374; 96375; 99284; J1885; J2270; J2405; Q9967

== ENCOUNTER 2019-02-25 14:46 | Emergency (ER) | payer MEDICAID, OTHER ==
--- NOTE | 2019-02-25 16:34 | UC ---
Lower Extremity/Ankle HPI - HPI Summary HPI Summary: 43 year old male who stepped on a nail last evening that went through his sandal. He washed it and soaked it last pm. Today he has some redness and minimal swelling to the dorsum of his right foot and increased pain "like it has its own pulse" - History of Current Complaint Stated Complaint: STEPPED ON A NAIL Time Seen by Provider: 02/25/19 16:33 Hx Obtained From: Patient Onset/Duration: Sudden Onset, Still Present Severity Initially: Mild Severity Currently: Moderate Aggravating Factor(s): Ambulation Alleviating Factor(s): Nothing Able to Bear Weight: Yes - Minimally - Allergies/Home Medications Allergies/Adverse Reactions: Allergies Allergy/AdvReac Type Severity Reaction Status Date / Time cat dander Allergy Eyes Verified 02/25/19 16:35 Itchy/Swollen/Red/Watery slowbid Allergy Intermediate Hives Uncoded 02/25/19 16:35 PMH/Surg Hx/FS Hx/Imm Hx Previously Healthy: Yes - Surgical History Surgical History: Yes Surgery Procedure, Year, and Place: Rt ANKLE - W/ 2 SCREWS - Family History Known Family History: Positive: Cardiac Disease, Hypertension, Diabetes - Social History Alcohol Use: Weekly Alcohol Amount: every other day sometimes Substance Use Type: Marijuana Substance Use Comment - Amount & Last Used: ealier today Smoking Status (MU): Never Smoked Tobacco Review of Systems All Other Systems Reviewed And Are Negative: Yes Skin: Positive: Other - puncture wound right foot, pt states more redness and swelling today Is Patient Immunocompromised?: No Physical Exam Triage Information Reviewed: Yes Appearance: No Pain Distress, Well-Nourished, Pain Distress Vital Signs Reviewed: Yes Musculoskeletal: Positive: Strength Intact, ROM Intact, Other: - Pt states he can't moves his toes without extreme pain. Neurological: Positive: Alert, Muscle Tone Normal Psychological Exam: Normal Skin: Positive: Other - Puncture wound plantar surface right foot, ball of foot. Mild redness dorsum of distal right foot with tenderness on palpation. Lower Extremity Course/Dx - Course Course Of Treatment: Right foot x-ray: FINDINGS: The soft tissues are unremarkable with no radiopaque foreign body along the plantar soft tissues. The patient is status post ORIF of bilateral malleolus fractures. The bone mineralization is within normal limits. No acute fractures identified. Near- anatomic alignment is maintained. The joint spaces are grossly preserved. IMPRESSION: No radiopaque foreign body along the plantar soft tissues. Status post ORIF of bilateral malleolus fractures. I spoke with , orthopedist, and he advised continuing Levaquin 750 mg daily for 6 more days. The patient was given 1 dose here. He is to warm soak his foot 4-6 times a day 20 minutes each time and elevate as much as possible. The patient was given crutches and he is to elevate it as much as possible. He was given Toradol 30 mg IM here as well as Tylenol 650 mg by mouth. Definite follow-up with his orthopedist Dr. Rae on Monday. If any worsening symptoms between now and then such as fever and chills, red streaks up his leg and he is to follow-up in the emergency room. Patient is agreeable to this plan of action. No work until cleared by the orthopedist - Differential Dx/Diagnosis Provider Diagnosis: Cellulitis of foot, Puncture wound of foot Discharge - Sign-Out/Discharge Documenting (check all that apply): Patient Departure All imaging exams completed and their final reports reviewed: Yes - Discharge Plan Condition: Fair Disposition: HOME Prescriptions: Levofloxacin TAB* [Levaquin TAB*] 750 mg PO DAILY 6 Days #6 tab Patient Education Materials: Puncture Wound (DC) Forms: *Work Release Referrals: No Primary Care Phys,NOPCP [Primary Care Provider] - Brenda Trujillo MD [Medical Doctor] - Additional Instructions: Warm salt water soaks 4-6 times a day, elevate as much as possible. You were given a Tdap immunization for tetanus which is good for 8-[address] Vera office tomorrow and make an appointment to be seen Monday. No work until cleared by the orthopedist - Billing Disposition and Condition Condition: FAIR Disposition: Home - Attestation Statements Provider Attestation: Pt not seen by me. I was available for consult. ALAYNA
[2019-02-25] MEDS ORDERED: Acetaminophen TAB* 325 MG PO ONE (16:39)
[2019-02-25] MEDS ORDERED: Tetan/Diph/Pertus SYR(Tdap)* 0.5 ML SYR(BOOSTRIX) use SYR contains LATEX IM ONE (16:39)
[2019-02-25] MEDS ORDERED: Ketorolac INJ* 30 MG/ML 1 ML VIAL IM ONE (17:29)
[2019-02-25] MEDS ORDERED: Levofloxacin TAB* 250 MG PO ONE (17:49)
[2019-02-25 18:06] VITALS: BP 142/94
== END 2019-02-25 18:07 | disposition home or self-care (01) ==
LOC: UCEAST 14:46
DX: S91.331A Puncture wound without foreign body, right foot, initial encounter (principal); W45.0XXA Nail entering through skin, initial encounter; Y92.9 Unspecified place or not applicable
CPT/HCPCS: 90471; 90715; 96372; 99213; A9270-GY; G0463; J1885